=== PATIENT | male | born 1950 ===

== ENCOUNTER 2020-05-06 15:16 | Inpatient (IN) | payer MEDICARE, OTHER ==
[~2020-05-06] VITALS: Ht 180.3 cm; Wt 98.0 kg
[2020-05-06 16:30] VITALS: BP 151/92
[2020-05-06] MEDS ORDERED: ACETAMINOPHEN 325 MG TABLET PO PRN (17:15)
[2020-05-06] MEDS ORDERED: ALBUTEROL SULFATE 2.5 MG/0.5 ML NEB SOLUTION NEB PRN (17:15)
[2020-05-06] MEDS: OXYGEN THERAPY IH SCH (20:47)
[2020-05-06] MEDS: DOCUSATE SODIUM 100 MG CAPSULE PO SCH ×2 (20:47→20:56)
[2020-05-06] MEDS: SENNA 187 MG TABLET PO SCH ×2 (20:47→20:56)
[2020-05-06] MEDS: ATORVASTATIN CALCIUM 40 MG TABLET PO SCH (20:47)
[2020-05-06] MEDS: METOPROLOL TARTRATE 25 MG TABLET PO SCH (20:47)
[2020-05-06 20:48] VITALS: BP 122/85
[2020-05-06] MEDS: APIXABAN 5 MG TABLET PO SCH (20:48)
[2020-05-07 03:37] VITALS: BP 123/66
[2020-05-07 07:12] LABS: BASOPHILS % (AUTO) 0.3 % (0.0-2.0); EOSINOPHILS % (AUTO) 3.9 % (1.0-6.0); HEMATOCRIT 41.7 % (41-53); LYMPHOCYTES # (AUTO) 1.4 K/uL (1.0-4.8); LYMPHOCYTES % (AUTO) 12.7 % (22.0-44.0); MEAN CORPUSCULAR HEMOGLOBIN 30.2 pg (26.0-34.0); MEAN CORPUSCULAR HGB CONC 33.5 G/dL (31.0-37.0); MEAN CORPUSCULAR VOLUME 90 fL (80-100); MONOCYTES # (AUTO) 1.1 K/uL (0.1-1.0); MONOCYTES % (AUTO) 10.3 % (2.0-9.0); NEUTROPHILS # (AUTO) 7.8 K/uL (1.8-7.7); NEUTROPHILS % (AUTO) 72.8 % (40.0-70.0); PLATELET COUNT (AUTO) 219 K/uL (150-450); RED BLOOD CELL COUNT(AUTO) 4.63 MIL/uL (4.50-5.90); RED CELL DISTRIBUTION WIDTH 13.7 % (11.5-14.5)
[2020-05-07 07:38] LABS: ALANINE AMINOTRANSFERASE 47 U/L (12-78); ALBUMIN 3.1 g/dL (3.4-5.0); ALKALINE PHOSPHATASE 69 U/L (46-116); ANION GAP 9 mmol/L (8-16); ASPARTATE AMINOTRANSFERASE 29 U/L (15-37); BILIRUBIN,TOTAL 0.7 mg/dL (0.1-1.0); CALCIUM, TOTAL 8.4 mg/dL (8.8-10.5); CARBON DIOXIDE 25 mmol/L (22-29); CHLORIDE 103 mmol/L (98-107); CREATININE 1.08 mg/dL (0.60-1.30); GLOMERULAR FILTR. RATE CALC > 60 mL/min (>60); GLUCOSE,RANDOM 137 mg/dL (70-110); POTASSIUM 3.7 mmol/L (3.5-5.1); SODIUM SERUM 137 mmol/L (136-145); TOTAL PROTEIN, SERUM 6.8 g/dL (6.4-8.2); UREA NITROGEN, BLOOD 18 mg/dL (7-18)
[2020-05-07] MEDS: DOCUSATE SODIUM 100 MG CAPSULE PO SCH ×2 (09:00→20:11)
[2020-05-07 09:20] VITALS: BP 118/84
[2020-05-07] MEDS: TIOTROPIUM BROMIDE 18 MCG/INH HANDIHALER [5] IH SCH (09:29)
[2020-05-07] MEDS: OXYGEN THERAPY IH SCH ×2 (09:29→20:11)
[2020-05-07] MEDS: APIXABAN 5 MG TABLET PO SCH ×2 (09:30→20:11)
[2020-05-07] MEDS: ASPIRIN 81 MG EC TABLET PO SCH (09:30)
[2020-05-07] MEDS: AmLODIPine BESYLATE 5 MG TABLET PO SCH (09:31)
[2020-05-07] MEDS: METOPROLOL TARTRATE 25 MG TABLET PO SCH ×2 (09:31→20:11)
[2020-05-07 15:20] VITALS: BP 128/63
[2020-05-07] MEDS: SENNA 187 MG TABLET PO SCH (20:11)
[2020-05-07] MEDS: ATORVASTATIN CALCIUM 40 MG TABLET PO SCH (20:11)
[2020-05-07 20:12] VITALS: BP 139/84
[2020-05-07 23:52] VITALS: BP 112/74
[2020-05-08 08:00] VITALS: BP 132/85
[2020-05-08] MEDS: OXYGEN THERAPY IH SCH ×2 (08:02→20:44)
[2020-05-08] MEDS: DOCUSATE SODIUM 250 MG CAPSULE PO SCH ×2 (08:03→20:43)
[2020-05-08] MEDS: AmLODIPine BESYLATE 5 MG TABLET PO SCH (08:03)
[2020-05-08] MEDS: ASPIRIN 81 MG EC TABLET PO SCH (08:04)
[2020-05-08] MEDS: METOPROLOL TARTRATE 25 MG TABLET PO SCH ×2 (08:04→20:43)
[2020-05-08] MEDS: APIXABAN 5 MG TABLET PO SCH ×2 (08:04→20:43)
[2020-05-08] MEDS: TIOTROPIUM BROMIDE 18 MCG/INH HANDIHALER [5] IH SCH (08:05)
[2020-05-08] MEDS: FLUTICASONE/VILANTEROL 200-25 MCG/INH INHALER [14] IH SCH (08:05)
[2020-05-08 16:08] VITALS: BP 124/76
[2020-05-08 20:41] VITALS: BP 135/79
[2020-05-08] MEDS: SENNA 187 MG TABLET PO SCH (20:43)
[2020-05-08] MEDS: ATORVASTATIN CALCIUM 40 MG TABLET PO SCH (20:43)
[2020-05-08 23:38] VITALS: BP 133/90
[2020-05-09] MEDS ORDERED: DOCUSATE SODIUM 283 MG/5 ML MINI-ENEMA PR PRN (04:45)
[2020-05-09 07:17] VITALS: BP 125/86
[2020-05-09] MEDS: FLUTICASONE/VILANTEROL 200-25 MCG/INH INHALER [14] IH SCH (07:24)
[2020-05-09] MEDS: TIOTROPIUM BROMIDE 18 MCG/INH HANDIHALER [5] IH SCH (07:25)
[2020-05-09] MEDS: ASPIRIN 81 MG EC TABLET PO SCH (07:30)
[2020-05-09] MEDS: AmLODIPine BESYLATE 5 MG TABLET PO SCH (07:31)
[2020-05-09] MEDS: APIXABAN 5 MG TABLET PO SCH ×2 (07:31→20:36)
[2020-05-09] MEDS: METOPROLOL TARTRATE 25 MG TABLET PO SCH ×2 (07:31→20:36)
[2020-05-09] MEDS: OXYGEN THERAPY IH SCH ×2 (07:33→20:36)
[2020-05-09] MEDS: DOCUSATE SODIUM 250 MG CAPSULE PO SCH ×3 (09:00→20:36)
[2020-05-09] MEDS ORDERED: MAGNESIUM HYDROXIDE SUSPENSION 30 ML UDCUP PO ONE (10:15)
[2020-05-09 15:30] VITALS: BP 116/88
[2020-05-09] MEDS: ATORVASTATIN CALCIUM 40 MG TABLET PO SCH (20:36)
[2020-05-09] MEDS: SENNA 187 MG TABLET PO SCH (20:36)
[2020-05-09 20:37] VITALS: BP 124/83
[2020-05-10 05:00] VITALS: BP 123/84
[2020-05-10 08:00] VITALS: BP 147/87
[2020-05-10] MEDS: DOCUSATE SODIUM 250 MG CAPSULE PO SCH ×2 (08:10→21:10)
[2020-05-10] MEDS: APIXABAN 5 MG TABLET PO SCH ×2 (08:11→21:10)
[2020-05-10] MEDS: AmLODIPine BESYLATE 5 MG TABLET PO SCH (08:11)
[2020-05-10] MEDS: METOPROLOL TARTRATE 25 MG TABLET PO SCH ×2 (08:11→21:10)
[2020-05-10] MEDS: ASPIRIN 81 MG EC TABLET PO SCH (08:11)
[2020-05-10] MEDS: FLUTICASONE/VILANTEROL 200-25 MCG/INH INHALER [14] IH SCH (08:12)
[2020-05-10] MEDS: TIOTROPIUM BROMIDE 18 MCG/INH HANDIHALER [5] IH SCH (08:12)
[2020-05-10] MEDS: OXYGEN THERAPY IH SCH ×2 (08:12→21:09)
[2020-05-10 16:45] VITALS: BP 133/81
[2020-05-10] MEDS ORDERED: ALBU8.5H8 IH (17:46)
[2020-05-10] MEDS ORDERED: TIOT185 IH (17:46)
[2020-05-10] MEDS ORDERED: ASPI-728 PO (17:46)
[2020-05-10] MEDS ORDERED: SIMV-261 PO (17:46)
[2020-05-10] MEDS ORDERED: METO25 PO (17:46)
[2020-05-10] MEDS ORDERED: ADV500 IH (17:46)
[2020-05-10] MEDS: ALBUTEROL SULFATE HFA 90 MCG/PUFF 8 GM INHALER IH PRN (17:59)
[2020-05-10 21:08] VITALS: BP 124/82
[2020-05-10] MEDS: ATORVASTATIN CALCIUM 40 MG TABLET PO SCH (21:10)
[2020-05-10] MEDS: SENNA 187 MG TABLET PO SCH (21:10)
[2020-05-11] MEDS: ALBUTEROL SULFATE HFA 90 MCG/PUFF 8 GM INHALER IH PRN ×3 (04:32→17:25)
[2020-05-11 04:46] VITALS: BP 120/78
[2020-05-11 07:52] VITALS: BP 130/88
[2020-05-11] MEDS: DOCUSATE SODIUM 250 MG CAPSULE PO SCH ×2 (08:26→20:27)
[2020-05-11] MEDS: APIXABAN 5 MG TABLET PO SCH ×2 (08:26→20:28)
[2020-05-11] MEDS: ASPIRIN 81 MG EC TABLET PO SCH (08:26)
[2020-05-11] MEDS: AmLODIPine BESYLATE 5 MG TABLET PO SCH (08:26)
[2020-05-11] MEDS: METOPROLOL TARTRATE 25 MG TABLET PO SCH ×2 (08:26→20:28)
[2020-05-11] MEDS: TIOTROPIUM BROMIDE 18 MCG/INH HANDIHALER [5] IH SCH (08:27)
[2020-05-11] MEDS: FLUTICASONE/VILANTEROL 200-25 MCG/INH INHALER [14] IH SCH (08:27)
[2020-05-11] MEDS: OXYGEN THERAPY IH SCH ×2 (08:27→20:27)
[2020-05-11 15:20] VITALS: BP 121/71
[2020-05-11 20:25] VITALS: BP 127/57
[2020-05-11] MEDS: ATORVASTATIN CALCIUM 40 MG TABLET PO SCH (20:27)
[2020-05-11] MEDS: SENNA 187 MG TABLET PO SCH (20:28)
[2020-05-12 01:00] VITALS: BP 135/78
[2020-05-12 08:00] VITALS: BP 135/71
[2020-05-12] MEDS: APIXABAN 5 MG TABLET PO SCH ×2 (08:02→20:31)
[2020-05-12] MEDS: METOPROLOL TARTRATE 25 MG TABLET PO SCH ×2 (08:02→20:31)
[2020-05-12] MEDS: DOCUSATE SODIUM 250 MG CAPSULE PO SCH ×2 (08:02→20:31)
[2020-05-12] MEDS: AmLODIPine BESYLATE 5 MG TABLET PO SCH (08:02)
[2020-05-12] MEDS: ASPIRIN 81 MG EC TABLET PO SCH (08:02)
[2020-05-12] MEDS: FLUTICASONE/VILANTEROL 200-25 MCG/INH INHALER [14] IH SCH (08:03)
[2020-05-12] MEDS: TIOTROPIUM BROMIDE 18 MCG/INH HANDIHALER [5] IH SCH (08:03)
[2020-05-12] MEDS: OXYGEN THERAPY IH SCH ×2 (08:03→20:31)
[2020-05-12] MEDS: ALBUTEROL SULFATE HFA 90 MCG/PUFF 8 GM INHALER IH PRN ×2 (10:12→18:11)
[2020-05-12 15:30] VITALS: BP 119/78
[2020-05-12 20:29] VITALS: BP 130/75
[2020-05-12] MEDS: SENNA 187 MG TABLET PO SCH (20:31)
[2020-05-12] MEDS: ATORVASTATIN CALCIUM 40 MG TABLET PO SCH (20:31)
[2020-05-13] MEDS: ALBUTEROL SULFATE HFA 90 MCG/PUFF 8 GM INHALER IH PRN ×3 (04:44→17:16)
[2020-05-13 04:51] VITALS: BP 124/80
[2020-05-13 08:26] VITALS: BP 128/82
[2020-05-13] MEDS: AmLODIPine BESYLATE 5 MG TABLET PO SCH (08:32)
[2020-05-13] MEDS: METOPROLOL TARTRATE 25 MG TABLET PO SCH ×2 (08:32→21:16)
[2020-05-13] MEDS: APIXABAN 5 MG TABLET PO SCH ×2 (08:32→21:16)
[2020-05-13] MEDS: ASPIRIN 81 MG EC TABLET PO SCH (08:32)
[2020-05-13] MEDS: DOCUSATE SODIUM 250 MG CAPSULE PO SCH ×2 (08:32→21:16)
[2020-05-13] MEDS: FLUTICASONE/VILANTEROL 200-25 MCG/INH INHALER [14] IH SCH (08:33)
[2020-05-13] MEDS: TIOTROPIUM BROMIDE 18 MCG/INH HANDIHALER [5] IH SCH (08:33)
[2020-05-13] MEDS: OXYGEN THERAPY IH SCH ×2 (08:34→21:15)
[2020-05-13 15:30] VITALS: BP 109/71
[2020-05-13] MEDS: ATORVASTATIN CALCIUM 40 MG TABLET PO SCH (21:16)
[2020-05-13] MEDS: SENNA 187 MG TABLET PO SCH (21:16)
[2020-05-13 21:19] VITALS: BP 124/70
[2020-05-14 03:00] VITALS: BP_SYST 124; BP_SYST 129; BP_DIAS 67; BP_DIAS 73
[2020-05-14] MEDS: ALBUTEROL SULFATE HFA 90 MCG/PUFF 8 GM INHALER IH PRN ×2 (04:25→14:01)
[2020-05-14 08:15] VITALS: BP 132/80
[2020-05-14] MEDS: DOCUSATE SODIUM 250 MG CAPSULE PO SCH ×2 (08:20→20:25)
[2020-05-14] MEDS: TIOTROPIUM BROMIDE 18 MCG/INH HANDIHALER [5] IH SCH (08:20)
[2020-05-14] MEDS: FLUTICASONE/VILANTEROL 200-25 MCG/INH INHALER [14] IH SCH (08:20)
[2020-05-14] MEDS: ASPIRIN 81 MG EC TABLET PO SCH (08:20)
[2020-05-14] MEDS: METOPROLOL TARTRATE 25 MG TABLET PO SCH ×2 (08:21→20:26)
[2020-05-14] MEDS: APIXABAN 5 MG TABLET PO SCH ×2 (08:21→20:26)
[2020-05-14] MEDS: AmLODIPine BESYLATE 5 MG TABLET PO SCH (08:21)
[2020-05-14] MEDS: OXYGEN THERAPY IH SCH ×2 (08:26→20:25)
[2020-05-14 15:20] VITALS: BP 130/82
[2020-05-14 20:20] VITALS: BP 109/48
[2020-05-14] MEDS: SENNA 187 MG TABLET PO SCH (20:26)
[2020-05-14] MEDS: ATORVASTATIN CALCIUM 40 MG TABLET PO SCH (20:26)
[2020-05-15 04:34] VITALS: BP 128/77
[2020-05-15] MEDS: OXYGEN THERAPY IH SCH ×2 (08:00→19:44)
[2020-05-15] MEDS: METOPROLOL TARTRATE 25 MG TABLET PO SCH ×2 (08:38→21:43)
[2020-05-15] MEDS: AmLODIPine BESYLATE 5 MG TABLET PO SCH (08:38)
[2020-05-15] MEDS: DOCUSATE SODIUM 250 MG CAPSULE PO SCH ×2 (08:38→21:43)
[2020-05-15] MEDS: APIXABAN 5 MG TABLET PO SCH ×2 (08:38→21:43)
[2020-05-15] MEDS: TIOTROPIUM BROMIDE 18 MCG/INH HANDIHALER [5] IH SCH (08:39)
[2020-05-15] MEDS: FLUTICASONE/VILANTEROL 200-25 MCG/INH INHALER [14] IH SCH (08:39)
[2020-05-15] MEDS: ASPIRIN 81 MG EC TABLET PO SCH (08:39)
[2020-05-15 10:09] VITALS: BP 138/80
[2020-05-15] MEDS: ALBUTEROL SULFATE HFA 90 MCG/PUFF 8 GM INHALER IH PRN (11:48)
[2020-05-15 16:25] VITALS: BP 102/64
[2020-05-15] MEDS: ATORVASTATIN CALCIUM 40 MG TABLET PO SCH (21:43)
[2020-05-15] MEDS: SENNA 187 MG TABLET PO SCH (21:43)
[2020-05-16 01:00] VITALS: BP 121/74
[2020-05-16] MEDS ORDERED: AMLO-257 PO (04:00)
[2020-05-16] MEDS ORDERED: ATOR40TA28 PO (04:00)
[2020-05-16 08:00] VITALS: BP 126/73
[2020-05-16] MEDS: DOCUSATE SODIUM 250 MG CAPSULE PO SCH ×2 (08:07→20:10)
[2020-05-16] MEDS: ASPIRIN 81 MG EC TABLET PO SCH (08:07)
[2020-05-16] MEDS: METOPROLOL TARTRATE 25 MG TABLET PO SCH ×2 (08:07→20:09)
[2020-05-16] MEDS: FLUTICASONE/VILANTEROL 200-25 MCG/INH INHALER [14] IH SCH (08:08)
[2020-05-16] MEDS: APIXABAN 5 MG TABLET PO SCH ×2 (08:08→20:09)
[2020-05-16] MEDS: AmLODIPine BESYLATE 5 MG TABLET PO SCH (08:08)
[2020-05-16] MEDS: TIOTROPIUM BROMIDE 18 MCG/INH HANDIHALER [5] IH SCH (08:09)
[2020-05-16] MEDS: OXYGEN THERAPY IH SCH ×2 (08:09→19:23)
[2020-05-16] MEDS: ALBUTEROL SULFATE HFA 90 MCG/PUFF 8 GM INHALER IH PRN ×3 (08:12→20:09)
[2020-05-16 08:46] LABS: BASOPHILS % (AUTO) 0.6 % (0.0-2.0); EOSINOPHILS % (AUTO) 3.2 % (1.0-6.0); HEMATOCRIT 43.4 % (41-53); HEMOGLOBIN 14.5 g/dL (13.5-17.5); LYMPHOCYTES # (AUTO) 2.2 K/uL (1.0-4.8); LYMPHOCYTES % (AUTO) 18.6 % (22.0-44.0); MEAN CORPUSCULAR HEMOGLOBIN 29.9 pg (26.0-34.0); MEAN CORPUSCULAR HGB CONC 33.4 G/dL (31.0-37.0); MEAN CORPUSCULAR VOLUME 90 fL (80-100); MONOCYTES % (AUTO) 8.3 % (2.0-9.0); NEUTROPHILS # (AUTO) 8.3 K/uL (1.8-7.7); NEUTROPHILS % (AUTO) 69.3 % (40.0-70.0); PLATELET COUNT (AUTO) 322 K/uL (150-450); RED BLOOD CELL COUNT(AUTO) 4.84 MIL/uL (4.50-5.90); RED CELL DISTRIBUTION WIDTH 13.6 % (11.5-14.5)
[2020-05-16 09:11] LABS: ANION GAP 4 mmol/L (8-16); CALCIUM, TOTAL 8.8 mg/dL (8.8-10.5); CARBON DIOXIDE 31 mmol/L (22-29); CHLORIDE 102 mmol/L (98-107); CREATININE 1.09 mg/dL (0.60-1.30); GLOMERULAR FILTR. RATE CALC > 60 mL/min (>60); GLUCOSE,RANDOM 166 mg/dL (70-110); POTASSIUM 3.9 mmol/L (3.5-5.1); SODIUM SERUM 137 mmol/L (136-145); UREA NITROGEN, BLOOD 17 mg/dL (7-18)
[2020-05-16 15:00] VITALS: BP 121/72
[2020-05-16] MEDS ORDERED: ALBU8HFA IH (19:38)
[2020-05-16] MEDS: ATORVASTATIN CALCIUM 40 MG TABLET PO SCH (20:09)
[2020-05-16] MEDS: SENNA 187 MG TABLET PO SCH (20:10)
[2020-05-17 01:42] VITALS: BP 129/79
[2020-05-17] MEDS: ALBUTEROL SULFATE HFA 90 MCG/PUFF 8 GM INHALER IH PRN ×2 (06:17→11:01)
[2020-05-17 07:00] VITALS: BP_SYST 116; BP_SYST 127; BP_DIAS 69; BP_DIAS 76
[2020-05-17] MEDS: OXYGEN THERAPY IH SCH (07:23)
[2020-05-17] MEDS: ASPIRIN 81 MG EC TABLET PO SCH (07:23)
[2020-05-17] MEDS: APIXABAN 5 MG TABLET PO SCH (07:52)
[2020-05-17] MEDS: METOPROLOL TARTRATE 25 MG TABLET PO SCH (07:52)
[2020-05-17] MEDS: AmLODIPine BESYLATE 5 MG TABLET PO SCH (07:52)
[2020-05-17] MEDS: FLUTICASONE/VILANTEROL 200-25 MCG/INH INHALER [14] IH SCH (07:52)
[2020-05-17] MEDS: TIOTROPIUM BROMIDE 18 MCG/INH HANDIHALER [5] IH SCH (07:52)
[2020-05-17] MEDS: DOCUSATE SODIUM 250 MG CAPSULE PO SCH (07:52)
[2020-05-17] MEDS ORDERED: APIX5TAB PO (08:15)
[2020-05-17] MEDS ORDERED: DOCU-350 PO (08:16)
== END 2020-05-17 13:00 | disposition home health service (06) | DRG 56 ==
LOC: 2WR 16:15
PROVIDERS: ADMIT Physical Medicine & Rehabilitation; ATTEND Physical Medicine & Rehabilitation
DX: I69.354 Hemiplegia and hemiparesis following cerebral infarction affecting left non-dominant side (principal); I63.9 Cerebral infarction, unspecified; I48.3 Typical atrial flutter; J44.9 Chronic obstructive pulmonary disease, unspecified; Z99.81 Dependence on supplemental oxygen; Z87.820 Personal history of traumatic brain injury; Z85.51 Personal history of malignant neoplasm of bladder; R26.9 Unspecified abnormalities of gait and mobility
CPT/HCPCS: 83036; 87081; 92507; 92508; 92523; 97110; 97112; 97116; 97150; 97163; 97166; 97530; 97535; 99366; J3535